=== PATIENT | female | born 1990 | race American Indian/Alaskan Native ===

== ENCOUNTER 2018-08-31 13:22 | Emergency (ER) | payer SELFPAY ==
[2018-08-31] MEDS ORDERED: NACL 0.9% 1000 ML 1,000 ML IV ONE (16:45)
[2018-08-31] MEDS ORDERED: REGLAN IV ONE (16:45)
[2018-08-31 17:06] LABS: Basophils % (Auto) 0.4 % (0.0-1.8); Eosinophils # (Auto) 0.1 K/mm3 (0.0-0.4); Eosinophils % (Auto) 0.8 % (0.0-4.3); Hematocrit 40.4 % (30.3-42.9); Lymphocytes # (Auto) 1.7 K/mm3 (1.2-5.4); Lymphocytes % (Auto) 25.5 % (13.4-35.0); Mean Corpuscular HGB Conc 35 % (30-34); Mean Corpuscular Hemoglobin 29 pg (28-32); Mean Corpuscular Volume 84 fl (79-97); Monocytes # (Auto) 0.3 K/mm3 (0.0-0.8); Monocytes % (Auto) 5.2 % (0.0-7.3); Platelet Count 285 K/mm3 (140-440); Red Blood Count 4.79 M/mm3 (3.65-5.03); Red Cell Distribution Width 13.4 % (13.2-15.2)
--- NOTE | 2018-08-31 17:09 | Emergency Department Report ---
ED N/V/D HPI - General Chief complaint: Nausea/Vomiting/Diarrhea Stated complaint: 11WKS /NAUSEA/DEHYDRATED Time Seen by Provider: 08/31/18 16:36 Source: patient Mode of arrival: Ambulatory Limitations: No Limitations - History of Present Illness Initial comments: This is a 28-year-old female nontoxic, well nourished in appearance, no acute signs of distress presents to the ED with c/o of nausea and vomiting. Patient stated that she is about 11 weeks and does have an OBGYN with a normal US previous visits. Patient stated she was put on some different nausea medications with minimal to no relief. Patient describes vomiting as food content. Patient denies any abdominal pain, pelvic pain, chest pain, short of breath, fever, chills, headache, stiff neck, numbness or tingling. Patient denies any vaginal bleeding. Patient denies any diarrhea or constipation. Patient denies any recent travels. Patient denies significant past medical history. MD complaint: nausea, vomiting Associated Abdominal Pain: No Radiation: none Pain Scale: 0 Consistency: intermittent Improves with: none Worsens with: none Associated Symptoms: denies other symptoms. denies: myalgias, chest pain, cough , diaphoresis, fever/chills, headaches, loss of appetite, malaise, nausea/ vomiting, rash, dysuria, shortness of breath, syncope, weakness - Related Data Previous Rx's Medication Instructions Recorded Last Taken Type Metoclopramide [Reglan] 10 mg PO Q8H PRN #30 tab 08/31/18 Unknown Rx Allergies Allergy/AdvReac Type Severity Reaction Status Date / Time raspberry Allergy Unknown Verified 05/21/16 15:58 insulin 70/30 Allergy Rash Uncoded 05/21/16 15:58 ED Review of Systems ROS: Stated complaint: 11WKS /NAUSEA/DEHYDRATED Other details as noted in HPI Constitutional: denies: chills, fever Eyes: denies: eye pain, eye discharge, vision change ENT: denies: ear pain, throat pain Respiratory: denies: cough, shortness of breath, wheezing Cardiovascular: denies: chest pain, palpitations Endocrine: no symptoms reported Gastrointestinal: nausea, vomiting. denies: abdominal pain, diarrhea, constipation Genitourinary: denies: urgency, dysuria, discharge Musculoskeletal: denies: back pain, joint swelling, arthralgia Skin: denies: rash, lesions Neurological: denies: headache, weakness, paresthesias Psychiatric: denies: anxiety, depression Hematological/Lymphatic: denies: easy bleeding, easy bruising ED Past Medical Hx - Past Medical History Hx Diabetes: Yes - Surgical History Additional Surgical History: left foot surgery - Social History Smoking Status: Never Smoker Substance Use Type: None - Medications Home Medications: Home Medications Medication Instructions Recorded Confirmed Last Taken Type Metoclopramide [Reglan] 10 mg PO Q8H PRN #30 tab 08/31/18 Unknown Rx ED Physical Exam - General Limitations: No Limitations General appearance: alert, in no apparent distress - Head Head exam: Present: atraumatic, normocephalic - Eye Eye exam: Present: normal appearance Pupils: Present: normal accommodation - ENT ENT exam: Present: normal exam, mucous membranes moist - Neck Neck exam: Present: normal inspection, full ROM. Absent: tenderness, meningismus, lymphadenopathy - Respiratory Respiratory exam: Present: normal lung sounds bilaterally. Absent: respiratory distress, wheezes, rales, rhonchi, stridor, chest wall tenderness, accessory muscle use, decreased breath sounds, prolonged expiratory - Cardiovascular Cardiovascular Exam: Present: regular rate, normal rhythm, normal heart sounds. Absent: irregular rhythm, systolic murmur, diastolic murmur, rubs, gallop - GI/Abdominal GI/Abdominal exam: Present: soft, normal bowel sounds. Absent: distended, tenderness, guarding, rebound, rigid, diminished bowel sounds - Extremities Exam Extremities exam: Present: normal inspection - Back Exam Back exam: Present: normal inspection - Neurological Exam Neurological exam: Present: alert, oriented X3 - Psychiatric Psychiatric exam: Present: normal affect, normal mood - Skin Skin exam: Present: warm, dry, intact, normal color. Absent: rash ED Course Vital Signs 08/31/18 13:41 Temperature 98.6 F Pulse Rate 92 H Respiratory 22 Rate Blood Pressure 133/87 O2 Sat by Pulse 96 Oximetry - Reevaluation(s) Reevaluation #1: 08/31/18 17:16 Patient is speaking in full sentences with no signs of distress noted. ED Medical Decision Making - Medical Decision Making This is a 28-year-old female that presents with hyperemesis gravidarum. Patient is stable and was examined by me. There is no abdominal tenderness. Negative signs of symptoms of appendicitis. Labs obtained. Vital signs are stable prior to discharge. Patient received Reglan and 1L Normal saline in the ED which patient stated symptoms has resolved and subsided. A by mouth challenge has been obtained and patient tolerated well with no nausea vomiting. Patient was notified of strict precautions of appendicitis symptoms and to return to the ED if symptoms occurs as soon as possible. Patient was also instructed to Follow-up with a primary care doctor in 3-5 days or if symptoms worsen and continue return to emergency room as soon as possible. At time of discharge, the patient does not seem toxic or ill in appearance. No acute signs of distress noted. Patient agrees to discharge treatment plan of care. No further questions noted by the patient. Critical care attestation.: If time is entered above; I have spent that time in minutes in the direct care of this critically ill patient, excluding procedure time. ED Disposition Clinical Impression: Hyperemesis gravidarum Disposition: TO HOME OR SELFCARE Is pt being admited?: No Does the pt Need Aspirin: No Condition: Stable Instructions: Hyperemesis Gravidarum (ED) Additional Instructions: Follow-up with a [facility] doctor in 3-5 days or if symptoms worsen and continue return to emergency room as soon as possible. Prescriptions: Metoclopramide [Reglan] 10 mg PO Q8H PRN #30 tab PRN Reason: Nausea Referrals: PRIMARY CAREMD [Primary Care Provider] - 3-5 Days KVNG NEAL MD [Staff Physician] - 3-5 Days [facility] [Provider Group] - 3-5 Days Forms: Work/School Release Form(ED)
[2018-08-31 17:29] LABS: BUN/Creatinine Ratio 28; Blood Urea Nitrogen 11 mg/dL (7-17); Calcium 9.1 mg/dL (8.4-10.2); Hemolysis Index 0
[2018-08-31 19:00] VITALS: BP 116/78
== END 2018-08-31 19:00 | disposition home or self-care (01) ==
LOC: ED 13:22
DX: O21.0 Mild hyperemesis gravidarum (principal); E11.9 Type 2 diabetes mellitus without complications; Z3A.11 11 weeks gestation of pregnancy; Z88.8 Allergy status to other drugs, medicaments and biological substances; Z91.018 Allergy to other foods
CPT/HCPCS: 36415; 80048; 85025; 96361; 96374; 99283; J2765; J7030

== ENCOUNTER 2019-01-21 23:26 | Inpatient (IN) | payer MEDICAID ==
[2019-01-22] MEDS ORDERED: AMPICILLIN/NS 2 GM/100 ML 2 GM/100 ML BAG IV ONE (02:34)
[2019-01-22] MEDS ORDERED: LACTATED RINGERS 1,000 ML ONE (02:48)
[2019-01-22 03:34] LABS: Hematocrit 32.5 % (30.3-42.9); Hemoglobin 10.8 gm/dl (10.1-14.3); Mean Corpuscular HGB Conc 33 % (30-34); Mean Corpuscular Volume 83 fl (79-97); Platelet Count 247 K/mm3 (140-440); Red Blood Count 3.95 M/mm3 (3.65-5.03)
--- NOTE | 2019-01-22 04:35 | Ultrasound Report ---
PROCEDURE: US OB LIMITED TECHNIQUE: A limited OB sonogram was obtained for evaluation of JOSE ROBERTO. HISTORY: JOSE ROBERTO COMPARISONS: None FINDINGS: The JOSE ROBERTO is 7.4 cm which is at the lower range of normal. The fetus is in cephalic presentation. The f etal heart rate is 149 BPM. IMPRESSION: JOSE ROBERTO is 7.4 cm. This is at the lower range of normal. Cephalic presentation. The heartbeat is 149 BPM.. This document is electronically signed by Eric Cabrales MD., January 22 2019 04:33:41 AM ET
[2019-01-22] MEDS ORDERED: LACTATED RINGERS 1,000 ML IV SCH ×3 (06:00→19:00)
[2019-01-22] MEDS: AMPICILLIN/NS 1 GM/50 ML 1 GM/50 ML BAG IV SCH ×4 (06:36→18:00)
[2019-01-22] MEDS ORDERED: TUCKS PAD TP PRN (07:54)
[2019-01-22] MEDS ORDERED: TYLENOL PO PRN ×2 (07:54→08:29)
[2019-01-22] MEDS ORDERED: MYLICON PO PRN (07:54)
[2019-01-22] MEDS ORDERED: ALUM-MAG HYDROX-SIMETH 200-200-20MG/5ML PO PRN (07:54)
[2019-01-22] MEDS ORDERED: SUDAFED PO PRN (07:54)
[2019-01-22] MEDS ORDERED: BENADRYL PO PRN (07:54)
[2019-01-22] MEDS ORDERED: COLACE PO PRN ×2 (07:54→08:29)
[2019-01-22] MEDS ORDERED: DEEP SEA NS PRN (07:54)
[2019-01-22] MEDS ORDERED: ZOFRAN IV PRN (07:54)
[2019-01-22] MEDS ORDERED: SENOKOT S PO PRN (07:54)
[2019-01-22] MEDS ORDERED: MAGNESIUM SULFATE 4GM/100ML 4 GM/100 ML BAG IV ONE (08:29)
--- NOTE | 2019-01-22 08:41 | History and Physical Report ---
History of Present Illness Date of examination: 01/22/19 Chief complaint: SROM @ 10 pm History of present illness: Pt is a 28yo BF EDC 03/20/19; EGA 31 6/7 weeks presents to L&D complaining of SROM clear fluid @ 2200 01/21/19 She denies contractions or bleeding. She receives care at [facility] and has IDDM Past History Past Medical History: diabetes Past Surgical History: no surgical history Social history: no significant social history, - Obstetrical History Expected Date of Delivery: 03/20/19 Actual Gestation: 31 Week(s) 6 Day(s) : 6 Medications and Allergies Allergies Allergy/AdvReac Type Severity Reaction Status Date / Time raspberry Allergy Unknown Verified 01/22/19 02:35 insulin 70/30 Allergy Rash Uncoded 05/21/16 15:58 Home Medications Medication Instructions Recorded Confirmed Last Taken Type Metoclopramide [Reglan] 10 mg PO Q8H PRN #30 tab 08/31/18 Unknown Rx Nitrofurantoin Rock/M-Cryst 100 mg PO Q12HR #14 capsule 09/10/18 Unknown Rx [Macrobid CAP] Active Meds: Active Medications Acetaminophen (Tylenol) 650 mg PO Q4H PRN PRN Reason: Pain MILD(1-3)/Fever >100.5/NICKERSON Al Hydrox/Mg Hydrox/Simethicone (Alum-Mag Hydrox-Simeth [id number]/5ml) 30 ml PO Q6H PRN PRN Reason: Indigestion Amoxicillin (Trimox) 250 mg PO Q8HR SHERLY; Protocol Stop: 01/29/19 07:55 Betamethasone Acet/Betameth SodPhos (Celestone Soluspan) 12 mg IM Q24HR SHERLY Stop: 01/23/19 10:01 Diphenhydramine HCl (Benadryl) 25 mg PO Q6H PRN PRN Reason: Itching Docusate Sodium (Colace) 100 mg PO Q12H PRN PRN Reason: Constipation Erythromycin (Juan Carlos-Tab) 250 mg PO Q8HR SHERLY; Protocol Stop: 01/29/19 07:56 Guaifenesin (Guaifenesin Dm Syrup) 10 ml PO Q6H PRN PRN Reason: Cough Ampicillin Sodium (Ampicillin/Ns 1 Gm/50 Ml) 1 gm in 50 mls @ 100 mls/hr IV Q4 HR SHERLY; Protocol Last Admin: 01/22/19 06:36 Dose: 100 mls/hr Documented by: Lactated Ringer's (Lactated Ringers) 1,000 mls @ 125 mls/hr IV DIRECT SHERLY Magnesium Hydroxide (Milk Of Magnesia) 30 ml PO QHS PRN PRN Reason: Laxative Effect Multivitamins/Iron/Calcium ( Vitamin) 1 each PO QDAY SHERLY Ondansetron HCl (Zofran) 4 mg IV Q6H PRN PRN Reason: Nausea And Vomiting Pseudoephedrine HCl (Sudafed) 30 mg PO Q4H PRN PRN Reason: Nasal Congestion Senna/Docusate Sodium (Senokot S) 2 tab PO Q12H PRN PRN Reason: Laxative Effect Simethicone (Mylicon) 80 mg PO Q6H PRN PRN Reason: Gas pain Sodium Chloride (Deep Sea) 2 spray NS Q4H PRN PRN Reason: Congestion Witch May/Glycerin (Tucks Pad) 1 each TP PRN PRN PRN Reason: Hemorrhoids Zolpidem Tartrate (Ambien) 10 mg PO ONCE PRN PRN Reason: Sleep Review of Systems All systems: negative - Vital Signs Vital signs: Vital Signs Pulse BP 78 130/63 01/22/19 00:08 01/22/19 00:08 Temp Pulse Resp BP Pulse Ox 98.8 F 78 16 135/64 01/22/19 04:10 01/22/19 04:11 01/22/19 04:10 01/22/19 04:11 - Physical Exam Breasts: Positive: deferred Cardiovascular: Regular rate Lungs: Positive: Clear to auscultation Abdomen: Positive: normal appearance, soft Uterus: Positive: enlarged Extremities: Positive: normal - Obstetrical FHR: category 1 Uterine Contraction Monitor Mode: External Uterine Contraction Pattern: Absent Results Result Diagrams: 01/22/19 03:20 Abnormal lab results 01/22/19 01/22/19 Range/Units 01:33 03:20 MCH 27 L (28-32) pg POC Glucose 202 H (70-105) All other labs normal. Ultrasound: report reviewed (Cephalic presentation; JOSE ROBERTO 7.4) Assessment and Plan - Patient Problems (1) 31 weeks gestation of Onset Date: 01/22/19 Current Visit: Yes Status: Acute Plan to address problem: A: IUP @ 31 6/7 weeks PPROM - stable IDDM P: Admit to L&D for IV hydration, IV Magnesium sulfate, IV antibiotics and steroids Obtain APA and NICU consultation Obtain records (2) premature rupture of membranes (PPROM) with onset of labor within 24 hours of rupture in third trimester, antepartum Onset Date: 01/22/19 Current Visit: Yes Status: Acute (3) IDDM (insulin dependent diabetes mellitus) Onset Date: 01/22/19 Current Visit: Yes Status: Acute
[2019-01-22] MEDS ORDERED: MAGNESIUM SULFATE 40GM/1000ML 40 GM/1,000 ML BAG IV SCH (09:00)
[2019-01-22] MEDS ORDERED: ZITHROMAX 250 MG in NACL 0.9% 250ML 250 ML IV SCH (10:00)
[2019-01-22] MEDS ORDERED: PRENATAL VITAMIN PO SCH ×2 (10:00)
[2019-01-22] MEDS ORDERED: CELESTONE SOLUSPAN IM SCH (10:00)
[2019-01-22] MEDS ORDERED: HumuLIN R SUB-Q ONE (20:39)
[2019-01-22] MEDS ORDERED: PERCOCET 5/325 PO PRN (20:41)
[2019-01-22] MEDS ORDERED: MILK OF MAGNESIA PO PRN (22:00)
[2019-01-22] MEDS ORDERED: AMBIEN PO PRN (22:00)
[2019-01-22] MEDS ORDERED: PITOCin/NS 20 UNIT/1000ML DRIP 20,000 MILLIUNITS/1,000 ML BAG IV ONE (22:11)
--- NOTE | 2019-01-22 22:29 | Anesthesia Consultation ---
Anesthesia Consult and Med Hx Date of service: 01/22/19 - Airway Anesthetic Teeth Evaluation: Good ROM Head & Neck: Adequate Mental/Hyoid Distance: Adequate Mallampati Class: Class II Intubation Access Assessment: Probably Good - Pulmonary Exam CTA: Yes - Cardiac Exam Cardiac Exam: RRR - Pre-Operative Health Status ASA Pre-Surgery Classification: ASA3 Proposed Anesthetic Plan: Epidural - Pulmonary Hx Asthma: No COPD: No Hx Pneumonia: No - Cardiovascular System Hx Hypertension: Yes (PIH) - Central Nervous System Hx Seizures: No Hx Psychiatric Problems: No - Endocrine Hx Renal Disease: No Hx End Stage Renal Disease: No Hx Hypothyroidism: No Hx Hyperthyroidism: No - Hematic Hx Anemia: No Hx Sickle Cell Disease: No - Other Systems Hx Alcohol Use: No
[2019-01-22] MEDS ORDERED: NARCAN 2 MG/2 ML IV PRN (22:30)
[2019-01-22] MEDS ORDERED: fentaNYL-BUPIV 2 MCG/ML-0.125% 200 MCG/100 ML BAG EPIDURAL SCH (23:00)
[2019-01-23] MEDS ORDERED: LANSINOH TP PRN (01:35)
[2019-01-23] MEDS ORDERED: DULCOLAX PR PRN (01:35)
[2019-01-23] MEDS ORDERED: TUCKS PAD TP PRN (01:35)
[2019-01-23] MEDS ORDERED: PHENERGAN PO PRN (01:35)
[2019-01-23] MEDS ORDERED: PHENERGAN PR PRN (01:35)
[2019-01-23] MEDS ORDERED: BENADRYL PO PRN (01:35)
[2019-01-23] MEDS ORDERED: ZOFRAN IV PRN (01:35)
[2019-01-23] MEDS ORDERED: MILK OF MAGNESIA PO PRN (01:35)
[2019-01-23] MEDS ORDERED: TYLENOL PO PRN (01:35)
--- NOTE | 2019-01-23 01:47 | Procedure Note ---
OB Delivery Note - Delivery Date of Delivery: 01/23/19 (00:43) Surgeon: SALUD WATERS (JULIANNE) Estimated blood loss: 100cc - Vaginal Delivery presentation: vertex Delivery position: OA Intrapartum events: labor-<37 weeks Delivery induction: none Delivery monitor: external FHT, external uterine Route of delivery: (00:43) Delivery placenta: spontaneous (00:49) Delivery cord: 3 umbilical vessels Episiotomy: none Delivery laceration: none Anesthesia: intravenous Delivery comments: Pt presented on 01/22/19 with PPROM 01/21/19 @2100. Pt was given MgS04 for neuro protection, antibiotics for unknown GBS, Steroids for lung development. Pt started tierney on her own and progressed to complete/100/+2. viable female DENISE position over intact perineum at 00:43. NICU and RT present for delivery. Vigorous infant with spontaneous cry. Cord double clamped, cut and to pre-warmed RW for assessment. Cord blood collected. Spontaneous stringer delivery of intact placenta at 00:49. 3VC. FF@U-2. Bleeding scant. No tears or lacerations. EBL 100cc. Infant to NICU. Mother left in stable condition in L&D. - A at 1 minute: 7 at 5 minutes: 8 Infant Gender: Female (4lbs 9oz, 1934 grams, 16")
[2019-01-23] MEDS ORDERED: SODIUM CHLORIDE FLUSH SYRINGE 10 ML IV PRN (02:00)
[2019-01-23] MEDS: IBUPROFEN PO SCH ×2 (03:45→20:44)
[2019-01-23] MEDS ORDERED: PITOCin/NS 20 UNIT/1000ML DRIP 20 UNITS/1,000 ML BAG IV SCH (04:00)
[2019-01-23 14:27] LABS: Hematocrit 31.8 % (30.3-42.9); Hemoglobin 10.4 gm/dl (10.1-14.3)
[2019-01-24] MEDS: IBUPROFEN PO SCH ×3 (02:18→13:48)
[2019-01-24] MEDS ORDERED: TRIMOX PO SCH (07:56)
[2019-01-24] MEDS ORDERED: ERY-TAB PO SCH (07:57)
[2019-01-24] MEDS ORDERED: ZITHROMAX PO SCH (10:00)
--- NOTE | 2019-01-24 11:06 | Progress Note ---
Assessment and Plan A: day 1 S/P spontaneous vaginal delivery. IDDM. Anemia secondary to blood loss and . P: Check blood sugars every 6 hours. Diabetic diet ordered for patient. Supplement with iron. Anticipate discharge tomorrow if stable. Subjective - Subjective Date of service: 01/24/19 Principal diagnosis: day 1 S/P spontaneous vaginal delivery Interval history: day 1 S/P spontaneous vaginal delivery. IDDM. Patient is doing well. She reports small amount of lochia. She is voiding without difficulty. Ambulating well. Tolerating regular diet and passing gas. Patient had elevated blood sugars yesterday. She is on insulin and has been taking her insulin from home which she has with her. Patient denies headache, chest pain, cough, shortness of breath, abdominal pain, leg pain, heavy vaginal bleeding, or any other problems. Patient reports: appetite normal, voiding normally, pain well controlled, flatus, ambulating normally, no dizzy ambulation, no nauseated : doing well Objective - Vital Signs Latest vital signs: Vital Signs Temp Pulse Resp BP BP Pulse Ox 01/24/19 08:51 20 01/24/19 00:00 98.4 F 63 18 119/78 01/23/19 20:00 98.6 F 64 18 132/67 01/23/19 18:07 98.0 F 76 20 131/78 96 Intake and Output 01/23/19 01/24/19 01/24/19 23:59 07:59 15:59 Intake Total 300 Balance 300 Intake: Intake, Free Water 300 Other: Voiding Method Toilet - Exam Cardiovascular: Present: Regular rate, Normal S1, Normal S2, No murmurs Lungs: Present: Clear to auscultation Abdomen: Present: normal appearance, soft, normal bowel sounds. Absent: distention, tenderness, guarding, rigidity Uterus: Present: normal, firm, fundal height below umbilicus. Absent: bogginess, tenderness Extremities: Present: normal. Absent: tenderness, edema
[2019-01-24] MEDS: FEOSOL PO SCH ×2 (13:48→23:08)
--- NOTE | 2019-01-24 15:06 | Event Note ---
Date: 01/24/[address] Guerrero re: patient's elevated blood sugars and no insulin orders on chart. Ordered blood sugar checks and diabetic diet for patient. Defer to MD for insulin orders. Informed patient's nurse about this.
[2019-01-24] MEDS ORDERED: HumuLIN R SUB-Q SCH ×2 (18:00→19:00)
[2019-01-24] MEDS ORDERED: D50W (25GM) Syringe IV PRN ×2 (18:08→18:11)
--- NOTE | 2019-01-24 18:08 | Event Note ---
Spoke with patient concerning her home insulin regimen. In third trimester her regimen was AM NPH 13 units Regular 27 units (breakfast) Regular 27 units (lunch) PM Regular 27 units (dinner) Will restart insulin regimen at lower dose in to avoid hypoglycemia AM NPH 13 units Regular 13 units (breakfast) Regular 13 units (lunch) PM Regular 13 units (dinner) Check blood glucose before meals. Will add sliding scale for additional coverage.
[2019-01-24] MEDS: HumuLIN R SUB-Q SCH (19:06)
[2019-01-25] MEDS: IBUPROFEN PO SCH ×3 (05:32→12:58)
[2019-01-25] MEDS ORDERED: HumuLIN R SUB-Q SCH (08:00)
[2019-01-25] MEDS: FEOSOL PO SCH (09:28)
--- NOTE | 2019-01-25 15:49 | Progress Note ---
Assessment and Plan A: day 2 S/P . IDDM. Anemia secondary to and blood loss. P: Discharge patient home. D/C OK'd by Dr. Guerrero. Discussed with patient discharge instructions and warning signs. Advised pt. to avoid IC, lifting, heavy housework, and driving. Advised pt. to follow up with [facility] in 6 weeks. Advised pt. to follow up with PCP and endocrinology. Pt. voiced understanding. Subjective - Subjective Date of service: 01/25/19 Principal diagnosis: day 2 S/P spontaneous vaginal delivery Interval history: day 2 S/P spontaneous vaginal delivery. IDDM. Patient is doing well. She reports small amount of lochia. She is voiding without difficulty. Ambulating well. Tolerating regular diet and passing gas. Patient denies headache, chest pain, cough, shortness of breath, abdominal pain, leg pain, heavy vaginal bleeding, or any other problems. Sugars better controlled. Patient reports: appetite normal, voiding normally, pain well controlled, flatus, ambulating normally, no dizzy ambulation, no nauseated [place]: doing well Objective - Vital Signs Latest vital signs: Vital Signs Temp Pulse Resp BP Pulse Ox 01/25/19 07:33 98.5 F 57 L 18 131/83 01/25/19 05:32 18 01/25/19 00:00 98.5 F 76 18 124/66 99 01/24/19 16:34 98.5 F 69 18 130/65 Intake and Output 01/24/19 01/25/19 01/25/19 23:59 07:59 15:59 Intake Total 480 720 Balance 480 720 Intake: Oral 480 720 Other: Total, Intake Amount 480 480 # Voids Void 1 1 - Exam Cardiovascular: Present: Regular rate, Normal S1, Normal S2 Lungs: Present: Clear to auscultation Abdomen: Present: normal appearance, soft, normal bowel sounds. Absent: distention, tenderness, guarding, rigidity Uterus: Present: normal, firm, fundal height below umbilicus. Absent: bogginess, tenderness Extremities: Present: normal. Absent: tenderness, edema - Labs Labs: Abnormal lab results 01/24/19 01/24/19 01/25/19 Range/Units 18:39 23:09 08:46 POC Glucose 209 H 131 H 137 H (70-105) 01/25/19 Range/Units 12:25 POC Glucose 233 H (70-105)
--- NOTE | 2019-01-25 15:54 | Discharge Summary ---
<JUMA SALAZAR - Last Filed: 01/25/19 15:51> Providers - Providers Date of Admission: 01/23/19 00:16 Date of discharge: 01/25/19 Attending physician: CARLINE COPPOLA MD None Primary care physician: CARLINE COPPOLA MD Hospitalization Reason for admission: labor, rupture of membranes Delivery: Episiotomy: none Laceration: none Other procedures: none Discharge diagnosis: delivery [place] baby: female Pertinent studies: Labs Hospital course: Stable hospital course Condition at discharge: Stable Disposition: DC-01 TO HOME OR SELFCARE - Discharge Diagnoses (1) delivery Status: Acute (2) Anemia, blood loss Status: Acute Plan - Provider Discharge Summary Activity: routine, no sex for 6 weeks, no heavy lifting 4 weeks, no strenuous exercise Diet: routine Instructions: routine Additional instructions: Call your doctor immediately for: * Fever > 100.5 * Heavy vaginal bleeding ( >1 pad per hour) * Severe persistent headache * Shortness of breath * Reddened, hot, painful area to leg or breast - Follow up plan Follow up: CARLINE COPPOLA MD [Primary Care Provider] - 6 Weeks Forms: [facility] Discharge Summary <EMERY GUDINO - Last Filed: 01/26/19 01:29> Providers - Providers Date of Admission: 01/23/19 00:16 Attending physician: CARLINE COPPOLA MD Primary care physician: CARLINE COPPOLA MD Hospitalization - Discharge Diagnoses (1) Anemia, blood loss Status: Acute Comment: Asymptomatic. Plan discharge home with supplemental iron. Plan - Provider Discharge Summary Additional instructions: [] Smoking cessation referral if applicable(refer to patient education folder for contact #) [] Refer to [facility] Call your doctor immediately for: * Fever > 100.5 * Heavy vaginal bleeding ( >1 pad per hour) * Severe persistent headache * Shortness of breath * Reddened, hot, painful area to leg or breast * Drainage or odor from incision. * Keep incision clean and dry at all times and follow doctor's instructions regarding bathing/showering
[2019-01-25] MEDS: HumuLIN R SUB-Q SCH (17:30)
[2019-01-25 18:08] VITALS: BP 138/81
== END 2019-01-25 17:55 | disposition home or self-care (01) | DRG 774 ==
LOC: TRG 23:26 → LD 23:40 → TRG 01-23 00:15 → LD 01-23 00:16 → OB 01-23 03:19
PROVIDERS: ADMIT Obstetrics & Gynecology; ATTEND Obstetrics & Gynecology
PROC: 10E0XZZ Delivery of Products of Conception, External Approach (ICD-10-PCS; principal; 2019-01-23)
DX: O42.013 Preterm premature rupture of membranes, onset of labor within 24 hours of rupture, third trimester (principal); O24.32 Unspecified pre-existing diabetes mellitus in childbirth; O13.4 Gestational [pregnancy-induced] hypertension without significant proteinuria, complicating childbirth; O60.14X0 Preterm labor third trimester with preterm delivery third trimester, not applicable or unspecified; O99.02 Anemia complicating childbirth; D64.9 Anemia, unspecified; Z79.899 Other long term (current) drug therapy; Z3A.31 31 weeks gestation of pregnancy; Z37.0 Single live birth
CPT/HCPCS: 36415; 76815; 82962; 83735; 85014; 85018; 85027; 86592; 86850; 86900; 86901; 96365; G0378; J0290; J0456; J0702; J1815; J2590; J3475; J7050; J7120